=== PATIENT | male | born 1965 | race Caucasian/White ===

== ENCOUNTER 2017-05-10 09:06 | Day surgery (SDC) | payer MEDICAID ==
[~2017-05-10] VITALS: Ht 167.6 cm; Wt 86.4 kg
[~2017-05-10 09:06] MED LIST: ACET1TAB15 PO; BUPR100SR PO; LITH300C3 PO; METH10 PO; OMEP20 PO; RISP1 PO; SODIUM CHLORIDE 0.9% 1,000 ML IV ONE
[2017-05-10] MEDS ORDERED: OXYGEN THERAPY IH SCH (20:00)
== END 2017-05-10 11:35 | disposition home or self-care (01) ==
LOC: SURGERY 09:06
PROVIDERS: ATTEND Specialist
DX: K31.7 Polyp of stomach and duodenum (principal); K29.50 Unspecified chronic gastritis without bleeding; K44.9 Diaphragmatic hernia without obstruction or gangrene; K21.9 Gastro-esophageal reflux disease without esophagitis; Z79.899 Other long term (current) drug therapy; Z98.890 Other specified postprocedural states
CPT/HCPCS: 43239; 88305; 88312; J7030